=== PATIENT | male | born 1990 ===

== ENCOUNTER 2022-01-15 02:44 | Emergency (ER) | payer SELFPAY ==
--- NOTE | 2022-01-15 09:15 | Emergency Department Report ---
ED Neck Pain/Injury HPI - General Chief Complaint: Chest Pain Stated Complaint: LEFT ARM NUMBNESS Time Seen by Provider: 01/15/22 08:56 Mode of arrival: Ambulatory Limitations: No Limitations - History of Present Illness Initial Comments: Patient is a 31-year-old male that comes to the emergency room complaining of acute onset neck pain. This occurred during the night last night. It woke him up so he got up out of bed and came to the ER. He has trapezius muscle strain noted on exam. He is neurovascularly intact. Peripheral vascularly intact. He has no focal deficit. He has no history of trauma. No fever or chills. In fact at the time of exam patient states that the pain is gone. MD Complaint: neck pain -: Sudden, hour(s) Quality: aching Consistency: constant Improves With: immobilization Worsens With: movement of extremity Context: other Associated Symptoms: none (None) - Related Data Allergies Allergy/AdvReac Type Severity Reaction Status Date / Time No Known Allergies Allergy Verified 01/15/22 03:30 ED Review of Systems ROS: Stated complaint: LEFT ARM NUMBNESS Other details as noted in HPI Comment: All other systems reviewed and negative ED Past Medical Hx - Past Medical History Previous Medical History?: No - Surgical History Past Surgical History?: No - Family History Family history: no significant - Social History Smoking Status: Never Smoker Substance Use Type: None ED Physical Exam - General Limitations: No Limitations General appearance: alert, in no apparent distress - Head Head exam: Present: atraumatic, normocephalic - Eye Eye exam: Present: normal appearance - ENT ENT exam: Present: mucous membranes moist - Neck Neck exam: Present: normal inspection - Respiratory Respiratory exam: Present: normal lung sounds bilaterally. Absent: respiratory distress - Cardiovascular Cardiovascular Exam: Present: regular rate, normal rhythm. Absent: systolic murmur, diastolic murmur, rubs, gallop - GI/Abdominal GI/Abdominal exam: Present: soft, normal bowel sounds - Rectal Rectal exam: Present: deferred - Extremities Exam Extremities exam: Present: normal inspection - Back Exam Back exam: Present: normal inspection - Neurological Exam Neurological exam: Present: alert, oriented X3, other (Trapezius muscle spasm noted on exam, on left side) - Psychiatric Psychiatric exam: Present: normal affect, normal mood - Skin Skin exam: Present: warm, dry, intact, normal color. Absent: rash ED Course Vital Signs 01/15/22 01/15/22 03:21 09:20 Temperature 98.1 F Pulse Rate 82 74 Respiratory 18 16 Rate Blood Pressure 125/87 Blood Pressure 128/84 [Left] O2 Sat by Pulse 98 99 Oximetry ED Medical Decision Making - EKG Data EKG shows normal: sinus rhythm Rate: normal - EKG Data When compared to previous EKG there are: no significant change Interpretation: no acute changes - Medical Decision Making EKG completed in triage. Noted to be normal. Patient denies any chest pain or shortness of breath. He has normal vital signs. Patient has trapezius muscle spasm noted on exam Patient is neurovascularly intact. Patient educated on torticollis. Patient being discharged home with discharge plan of care including diet, activity, medications and follow-up. He verbalizes understanding of care Vital Signs 01/15/22 01/15/22 03:21 09:20 Temperature 98.1 F Pulse Rate 82 74 Respiratory 18 16 Rate Blood Pressure 125/87 Blood Pressure 128/84 [Left] O2 Sat by Pulse 98 99 Oximetry - Differential Diagnosis Muscle spasm- cervical strain Critical care attestation.: If time is entered above; I have spent that time in minutes in the direct care of this critically ill patient, excluding procedure time. ED Disposition Clinical Impression: Torticollis Disposition: 01 HOME / SELF CARE / HOMELESS Is pt being admited?: No Does the pt Need Aspirin: No Condition: Stable Instructions: Acute Torticollis, Adult Additional Instructions: Motrin or Tylenol for pain Warm baths may help with your discomfort, of your back and your neck if this should recur A new pillow would be warranted Follow-up with primary care for ongoing management of your chronic thoracic pain Referrals: KIRAN TRAN MD [Primary Care Provider] - 3-5 Days Forms: Work/School Release Form(ED) Time of Disposition: 09:14
[2022-01-15 09:21] VITALS: BP 128/84
--- NOTE | 2022-01-16 09:58 | Electrocardiograph Report ---
[facility] Test Date: 2022-01-15 Test Time: 03:23:03 Pat Name: RAS TATUM Department: Room: Gender: M Applier: MELINDA : 1990 Requested By: MARIA C RIVERA Order Number: [id number] Reading MD: Jaime Rivera Measurements Intervals [place] Rate: 72 P: 62 NM: 162 QRS: 65 QRSD: 89 T: 38 QT: 359 QTc: 395 Interpretive Statements Sinus rhythm No previous ECG available for comparison Electronically Signed On 01-16-2022 9:58:14 EDT by Jaime Rivera
== END 2022-01-15 09:21 | disposition home or self-care (01) ==
LOC: ED 02:44
DX: M43.6 Torticollis (principal)
CPT/HCPCS: 36415; 84484; 93005; 99283